=== PATIENT | male | born 1935 | race Caucasian/White ===

== ENCOUNTER 2023-02-04 15:51 | Observation (INO) | payer MEDICARE, OTHER ==
[2023-02-04] MEDS ORDERED: Sodium Chloride 0.9% 10 ML Syringe FLUSH PRN (17:03)
[2023-02-04] MEDS ORDERED: Ondansetron 4 MG/2 ML SDV IVPUSH ONE (17:03)
[2023-02-04] MEDS ORDERED: Morphine 4 MG/ML Syringe IVPUSH ONE (17:03)
[2023-02-04 17:15] LABS: BASOPHILS ABSOLUTE AUTO 0.02 10^3/uL (0.00-0.10); BASOPHILS PERCENT AUTO 0.1 % (0.0-1.0); EOSINOPHILS ABSOLUTE AUTO 0.06 10^3/uL (0.10-0.30); EOSINOPHILS PERCENT AUTO 0.3 % (1.0-3.0); HEMATOCRIT 39.7 % (40.0-52.0); HEMOGLOBIN 13.3 g/dL (13.0-17.0); IMMATURE GRAN ABSOLUTE AUTO 0.06 10^3/uL (0.00-0.50); IMMATURE GRAN PERCENT AUTO 0.3 % (0.0-5.0); LYMPHOCYTES ABSOLUTE AUTO 1.01 10^3/uL (1.00-4.00); LYMPHOCYTES PERCENT AUTO 5.1 % (20.0-40.0); MEAN CORPUSCULAR HEMOGLOBIN 33.9 pg (27.0-31.0); MEAN CORPUSCULAR HGB CONC 33.5 g/dL (32.0-36.0); MEAN CORPUSCULAR VOLUME 101.3 fL (82.0-92.0); MEAN PLATELET VOLUME 9.1 fL (7.4-10.4); MONOCYTES ABSOLUTE AUTO 1.16 10^3/uL (0.10-0.80); MONOCYTES PERCENT AUTO 5.9 % (2.0-8.0); NEUTROPHILS ABSOLUTE AUTO 17.36 10^3/uL (2.50-7.00); NEUTROPHILS PERCENT AUTO 88.3 % (50.0-70.0); PLATELET COUNT,PLT 225 10^3/uL (150-400); RED BLOOD CELL COUNT 3.92 10^6/uL (4.50-6.00); RED CELL DISTRIBUTION WIDTH 12.8 % (11.5-14.5); WHITE BLOOD CELL COUNT,WBC 19.67 10^3/uL (5.00-10.00)
[2023-02-04 17:29] LABS: ALBUMIN 3.44 g/dL (3.40-5.00); ANION GAP 15.6 mmol/L (5-15); BILIRUBIN TOTAL 0.5 mg/dL (0.2-1.0); CALCIUM 8.6 mg/dL (8.7-10.3); CARBON DIOXIDE,CO2 24.7 mmol/L (21.0-32.0); CREATININE 1.01 mg/dL (0.51-1.17); EST CRCL DRUG DOSING (CG) 48.18 mL/min; POTASSIUM,K 4.3 mmol/L (3.5-5.1); PROTEIN TOTAL,TP 7.4 g/dL (6.4-8.2)
[2023-02-04 17:56] LABS: APPEARANCE,URINE CLEAR (CLEAR); BILIRUBIN,URINE NEGATIVE (NEGATIVE); COLOR,URINE YELLOW (YELLOW); GLUCOSE,URINE 100 mg/dL (NEGATIVE); KETONES,URINE NEGATIVE (NEGATIVE); LEUKOCYTE ESTERASE,URINE NEGATIVE (NEGATIVE); NITRITE,URINE NEGATIVE (NEGATIVE); OCCULT BLOOD,URINE TRACE-INTACT (NEGATIVE); PH,URINE 5.5 (5.0-9.0); PROTEIN,URINE NEGATIVE (NEGATIVE); UROBILINOGEN,URINE 0.2 E.U./dL (0.2-1.0)
[2023-02-04 18:04] LABS: WBC,URINE 0-5 /HPF (0-5)
[2023-02-04 18:05] LABS: BACTERIA,URINE OCCASIONAL /HPF (NONE TO FEW); EPITHELIAL CELLS,URINE FEW /LPF
[2023-02-04] MEDS ORDERED: Morphine 2 MG/ML SYRINGE IVPUSH ONE (18:42)
[2023-02-04] MEDS ORDERED: LORazepam 0.5 MG Tab PO ONE (18:42)
[2023-02-04] MEDS ORDERED: Acetaminophen 325 MG Tab PO PRN (19:42)
[2023-02-04] MEDS ORDERED: Calcium Carbonate 500 MG Tab.Chew PO PRN (19:42)
[2023-02-04] MEDS ORDERED: Magnesium Hydroxide 400 MG/5 ML Susp 30 ML Cup PO PRN (19:42)
[2023-02-04] MEDS ORDERED: Nitroglycerin 0.4 MG Tab.SL SL PRN (19:42)
[2023-02-04] MEDS ORDERED: Diclofenac Sodium 1% Gel 100 GM Tube TOP PRN (19:42)
[2023-02-04] MEDS: Enoxaparin 30 MG/0.3 ML Syringe SUBCUT SCH (20:55)
[2023-02-04] MEDS: Acetaminophen 325 MG Tab PO SCH (20:57)
[2023-02-04] MEDS ORDERED: QUEtiapine 25 MG Tab PO SCH (21:00)
[2023-02-04] MEDS ORDERED: Melatonin 3 MG Tab PO SCH (21:00)
[2023-02-05] MEDS ORDERED: Morphine 2 MG/ML SYRINGE IVPUSH ONE (04:56)
[2023-02-05] MEDS ORDERED: Ondansetron 4 MG/2 ML SDV IVPUSH ONE (04:57)
[2023-02-05] MEDS ORDERED: LORazepam 0.5 MG Tab PO ONE (04:57)
[2023-02-05] MEDS: Sodium Chloride 0.9% 10 ML Syringe FLUSH PRN ×2 (05:15→05:30)
[2023-02-05 07:21] LABS: BASOPHILS ABSOLUTE AUTO 0.03 10^3/uL (0.00-0.10); BASOPHILS PERCENT AUTO 0.3 % (0.0-1.0); EOSINOPHILS PERCENT AUTO 1.7 % (1.0-3.0); HEMATOCRIT 36.6 % (40.0-52.0); HEMOGLOBIN 12.4 g/dL (13.0-17.0); IMMATURE GRAN ABSOLUTE AUTO 0.02 10^3/uL (0.00-0.50); IMMATURE GRAN PERCENT AUTO 0.2 % (0.0-5.0); LYMPHOCYTES ABSOLUTE AUTO 1.15 10^3/uL (1.00-4.00); LYMPHOCYTES PERCENT AUTO 9.9 % (20.0-40.0); MEAN CORPUSCULAR HEMOGLOBIN 34.2 pg (27.0-31.0); MEAN CORPUSCULAR HGB CONC 33.9 g/dL (32.0-36.0); MEAN CORPUSCULAR VOLUME 100.8 fL (82.0-92.0); MEAN PLATELET VOLUME 9.1 fL (7.4-10.4); MONOCYTES ABSOLUTE AUTO 1.15 10^3/uL (0.10-0.80); MONOCYTES PERCENT AUTO 9.9 % (2.0-8.0); NEUTROPHILS ABSOLUTE AUTO 9.12 10^3/uL (2.50-7.00); PLATELET COUNT,PLT 191 10^3/uL (150-400); RED BLOOD CELL COUNT 3.63 10^6/uL (4.50-6.00); WHITE BLOOD CELL COUNT,WBC 11.67 10^3/uL (5.00-10.00)
[2023-02-05] MEDS ORDERED: Omeprazole 20 MG Cap.CR PO SCH (07:30)
[2023-02-05] MEDS ORDERED: Morphine 2 MG/ML SYRINGE IVPUSH PRN (07:30)
[2023-02-05] MEDS ORDERED: Aspirin 81 MG Tab.Chew PO SCH (09:00)
[2023-02-05] MEDS ORDERED: predniSONE 5 MG Tab PO SCH (09:00)
[2023-02-05] MEDS ORDERED: Multivitamins with Minerals/Iron/Folic Acid/Lycopene Tab PO SCH (09:00)
[2023-02-05] MEDS ORDERED: FLUoxetine 10 MG Cap PO SCH (09:00)
[2023-02-05] MEDS ORDERED: QUEtiapine 100 MG Tab PO SCH (09:00)
[2023-02-05] MEDS: Enoxaparin 30 MG/0.3 ML Syringe SUBCUT SCH (11:37)
[2023-02-05] MEDS ORDERED: Sodium Chloride 0.9% 1,000 ML IV SCH (11:45)
[2023-02-05] MEDS: Acetaminophen 325 MG Tab PO SCH ×2 (11:48→14:34)
== END 2023-02-05 13:47 ==
LOC: KA.ED 15:51 → KA.MS 17:41
PROVIDERS: ADMIT Physician Assistant Medical; ATTEND Family Medicine
DX: S72.142A Displaced intertrochanteric fracture of left femur, initial encounter for closed fracture (principal); M25.552 Pain in left hip; D72.829 Elevated white blood cell count, unspecified; I73.9 Peripheral vascular disease, unspecified; R94.31 Abnormal electrocardiogram [ECG] [EKG]; Z79.899 Other long term (current) drug therapy; Z79.82 Long term (current) use of aspirin; Z95.1 Presence of aortocoronary bypass graft; Z90.49 Acquired absence of other specified parts of digestive tract; Z98.890 Other specified postprocedural states; Z88.8 Allergy status to other drugs, medicaments and biological substances; Z88.1 Allergy status to other antibiotic agents; W19.XXXA Unspecified fall, initial encounter
CPT/HCPCS: 36415; 51702; 71045; 73700-LT; 80053; 81001; 85025; 93005; 96372; 96374; 96375; 96376; 99285-25; A9270-GY; G0378; J1650; J2270; J2405; J3490; J7030; J7512